=== PATIENT | female | born 1985 | race Caucasian/White ===

== ENCOUNTER → 2019-03-25 | Outpatient (CLI) | payer OTHER ==
--- NOTE | 2019-03-25 11:47 | MRI ---
EXAM DESCRIPTION: Brain w/wo Contrast: Magnetic Resonance Imaging. 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 COMPARISON: MRI scan of the cervical spine and Chest CT scan on the same visit. TECHNIQUE: Multiplanar, high-field MRI, multiple conventional sequences, without and with gadolinium IV contrast. No adverse reactions. Multiple axial diffusion sequences. FINDINGS: Normal FLAIR and T2-weighted signal in the periventricular white matter and brush-white matter junctions of the cerebral hemispheres. Also subcortical white matter and centrum semiovale white matter. . No diffusion restriction, mass effect, hemorrhage, or abnormal contrast enhancement. Normal signal in the bilateral basal ganglia. No hemorrhage, no cerebral edema, no mass-effect. Normal contrast enhancement. Normal signal in the brainstem and cerebellar hemispheres. No hemorrhage, no cerebral edema, no mass-effect. Normal contrast enhancement. Concordance of the diffusion and non-diffusion sequences with no evidence of acute or subacute infarction. Cortical sulci, ventricles, and other CSF spaces, and the subdural spaces are normally configured for patients age.. No effacement or displacement. No midline shift. No extra-axial hemorrhage. Normal contrast enhancement. No abnormal signal in the orbital globes, optic nerves. No intraconal abnormal signal. Normal contrast enhancement. Normal flow signal void in the major vessels of the [place], and the venous sinuses. IACs are symmetric bilaterally. Normal signal in the bilateral mastoid air cells. No mass effect in the bilateral Cerebellopontine angles. Normal contrast enhancement. Pituitary gland occupies most of the sella. Normal contrast enhancement. Base of the cerebellar tonsils is at the level of the foramen magnum. Armida bullosa in the left middle turbinate. Right septal deviation and narrowing of the nasal passageway. Abnormalities in the paranasal sinuses. The bony calvarium is intact. IMPRESSION: Normal MRI scan of the brain without and with gadolinium IV contrast. No mass effect or diffusion restriction. Right septal deviation and narrowing of the right nasal passageway. No intraorbital mass or enhancement. Electronically signed by: Jt Banks MD 03/25/2019 11:46 AM CDT
--- NOTE | 2019-03-25 12:22 | MRI ---
EXAM DESCRIPTION: Cervical Spine w/wo Contrast: MRI. 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 COMPARISON: MRI scan of the brain without and with gadolinium IV contrast. CT scan of the chest without IV contrast. TECHNIQUE: Multiplanar, high-field MRI, multiple sequences, non-contrast Cervical spine. FINDINGS: C4-C5: Minimal desiccation of the disc and minimal disc space loss. Hyperintense T2 weighted annular fissure in the posterior disc margin almost abutting the cord. Left uncinate spur projecting into the neural foramen. Mild to moderate narrowing. C5-C6: Disc desiccation and left paracentral bulge abutting the left ventral cord. Moderate canal narrowing. Bilateral neural foramina are patent. C6-C7: Disc desiccation and minimal disc space loss. Tiny posterior midline bulge. Neuroforamina and facet joints are unremarkable. Normal signal in the remaining discs with no bulging. Disc spaces preserved. Canal and neural foramina are patent. Facet joints are negative. Spinal alignment neutral. No cord compression or cord edema. Atlantoaxial joint negative.. Base of the cerebellar tonsils is at the level of the foramen magnum. Paravertebral soft tissues showing a lobulated mass in the left lobe of the thyroid gland measuring 1.8 x 1.1 cm transverse, hypointense on T2 sequence and mildly hyperintense on T1 sequence. This is expanding the left lobe against the left carotid and internal jugular vessels.. Vertebral bodies are not compressed at any level. Otherwise normal marrow signal in the remaining vertebral bodies and the posterior elements. No mass in the included bilateral lung apices or thoracic inlet. IMPRESSION: 1. T2-weighted annular fissure in the posterior disc margin at C4-C5 with bulging, almost abutting the cord. Mild to moderate narrowing of the left neural foramen by uncinate spur. 2. C5-C6 disc desiccation and left paracentral bulge abutting the left ventral cord with moderate canal narrowing. 3. No abnormal signal in the spinal cord from C8 to T2. No mass in the included bilateral lung apices are thoracic inlet. Electronically signed by: Jt Banks MD 03/25/2019 12:20 PM CDT
--- NOTE | 2019-03-25 18:18 | CT ---
EXAM DESCRIPTION: Chest w/o Contrast : Computed Tomography. CLINICAL HISTORY: 33 years Female COUGH. Noam's syndrome. Right Eye abnormality COMPARISON: MRI scan of the brain and cervical spine on this visit. TECHNIQUE: Spiral-axial scans at 5 x 5 mm intervals through the lungs and thorax without IV contrast. 2.5 x 5 mm lung algorithm axial reconstructions. Coronal and sagittal 2.0 Mm reconstructions. Total Exam DLP: 205.25 mGy-cm. This exam was performed according to our departmental dose-optimization program which includes automated exposure control, adjustment of the mA and/or kV according to patient size and/or use of iterative reconstruction technique; to reduce radiation dose to as low as reasonably achievable (ALARA). Nodule measurements under 10 mm are given as mean value of 3 axes diameters. FINDINGS: Lungs and large airways: No abnormal nodules or masses. No infiltrates. Well aerated. Pleural spaces: Negative. Mediastinum and Amita: Evaluation limited due to lack of IV contrast minimal mediastinal fat. No enlarged nodes or dominant soft tissue masses. Great vessels and Heart: Evaluation limited due to lack of IV contrast.. Negative. Soft tissues of neck base, axillae, and chest wall: Evaluation limited due to lack of IV contrast. No soft tissue masses or edema. No soft tissue masses in the thoracic inlet or above the lung apices. Upper abdomen: No free fluid in the peritoneal space. Limited due to lack of intra-abdominal fat and lack of IV contrast. Osseous structures: Anterior spondylosis T2-T3. Normal bone density. No lytic or blastic lesions. IMPRESSION: 1. Lungs are well-inflated with no abnormal nodules or masses. No focal infiltrates. 2. No masses in the thoracic inlet, base of the neck, or above the lung apices. Evaluation of soft tissues is limited due to lack of IV contrast.. Electronically signed by: Jt Banks MD 03/25/2019 6:17 PM CDT
== END ==
LOC: MRI 09:14
PROVIDERS: ATTEND Nurse Practitioner
DX: G44.52 New daily persistent headache (NDPH) (principal); M50.921 Unspecified cervical disc disorder at C4-C5 level; M50.322 Other cervical disc degeneration at C5-C6 level; M46.02 Spinal enthesopathy, cervical region; G90.2 Horner's syndrome